=== PATIENT | male | born 1940 | race Caucasian/White ===

== ENCOUNTER → 2018-05-06 | Outpatient (REF) | payer MEDICARE ==
[~2018-05-06] MED LIST: ALLOPURINOL300 MG OR; ANTIVERT12.5 MG PO; ATORVASTATIN CA20 MG PO; CIPROFLOXACN500 MG PO; CLOPIDOGREL75 MG PO; DIOVAN160 MG OR; LEVOTHYROXIN112 MCG PO; LEVOTHYROXINE125 MCG PO; LEVOXYL125 MCG OR; LOPID600 MG OR; LOVASTATIN40 MG OR; MEDDOSEPAK PO; MULTI VIT OR; PREDNISONE20 MG OR; PRILOSEC20 MG OR; SB ASA LOW81 MG OR; SUPER B COMPLEX PO; VITAMIN D2 PO; ZYRTEC10 MG OR; [UNRECOGNIZED DRUG - OTHER] PO
[2018-05-06 09:29] LABS: HEMATOCRIT 43.1 % (39.0-50.0); HEMOGLOBIN 14.6 g/dl (14.0-18.0); MEAN CELL VOLUME 95.1 fL CALC (80.0-100.0); MEAN CORPUSCULAR HGB 32.2 pG CALC (26.0-32.0); MEAN CORPUSCULAR HGB CONC 33.9 g/L CALC (32.0-36.0); RED BLOOD COUNT 4.53 mill/uL (4.70-6.10)
[2018-05-06 10:03] LABS: ALBUMIN 4.7 g/dL (3.2-5.0); ALKALINE PHOSPHATASE 73 u/l (38-126); ANION GAP 15 (6-22 (CALC)); BUN 20 mg/dL (8-23); BUN/CREATININE RATIO 16 (12-20 (CALC)); CALCULATED LDLCHOLESTEROL 53 mg/dL (62-129 (CALC)); CARBON DIOXIDE 28 mmol/l (22-30); CHLORIDE 102 mmol/l (95-108); CREATININE 1.3 mg/dL (0.7-1.3); GFR 53 ML/MIN (>=60 (CALC)); GFR FOR AFR.AMER. > 60 ML/MIN (>=60 (CALC)); HDL CHOLESTEROL 45 mg/dL (>=40); POTASSIUM 4.4 mmol/l (3.5-5.1); SGOT/AST 36 u/l (19-48); SODIUM 141 mmol/l (137-146); TOTAL CHOLESTEROL 138 mg/dl (0-199); TOTAL PROTEIN 7.6 g/dL (6.3-8.2); TOTAL TRIGLYCERIDES 199 mg/dl (30-149); VLDL CHOLESTROL 40 mg/dl (0-38 (CALC))
[2018-05-06 10:29] LABS: TSH, 3RD GENERATION 0.58 uIU/mL (0.47 - 4.68)
== END | disposition home or self-care (01) ==
LOC: STRESS 08:46 → NUCMED 09:45
PROVIDERS: ATTEND Internal Medicine
DX: I25.10 Atherosclerotic heart disease of native coronary artery without angina pectoris (principal); G89.4 Chronic pain syndrome; I10 Essential (primary) hypertension; E78.49 Other hyperlipidemia; N18.9 Chronic kidney disease, unspecified; E03.9 Hypothyroidism, unspecified; R53.83 Other fatigue; I50.22 Chronic systolic (congestive) heart failure; E11.65 Type 2 diabetes mellitus with hyperglycemia; E55.9 Vitamin D deficiency, unspecified; M10.9 Gout, unspecified
CPT/HCPCS: A9502; J2785